=== PATIENT | male | born 1985 | race Caucasian/White ===

== ENCOUNTER 2018-06-15 22:04 | Emergency (ER) | payer OTHER ==
[~2018-06-15] VITALS: Ht 147.3 cm; Wt 68.2 kg
[2018-06-15 22:12] VITALS: Ht 147.3 cm; Wt 68.2 kg
[2018-06-15] MEDS ORDERED: CONCERTA 18 MG18 MG PO (22:15)
[2018-06-15] MEDS ORDERED: LEXAPRO20 MG PO (22:15)
[2018-06-16] MEDS ORDERED: ROBAXIN-750750 MG PO (01:00)
[2018-06-16 02:01] VITALS: BP 132/85
== END 2018-06-16 02:02 | disposition home or self-care (01) ==
LOC: D.ER 22:04
DX: S30.1XXA Contusion of abdominal wall, initial encounter (principal); V43.52XA Car driver injured in collision with other type car in traffic accident, initial encounter; Y93.89 Activity, other specified; Y92.410 Unspecified street and highway as the place of occurrence of the external cause; S16.1XXA Strain of muscle, fascia and tendon at neck level, initial encounter; F17.200 Nicotine dependence, unspecified, uncomplicated

== ENCOUNTER 2018-06-22 17:08 | Emergency (ER) | payer OTHER ==
[~2018-06-22] VITALS: Ht 147.3 cm; Wt 65.8 kg
[~2018-06-22 17:08] MED LIST: CONCERTA 18 MG18 MG PO; LEXAPRO20 MG PO; ROBAXIN-750750 MG PO
[2018-06-22 17:15] VITALS: Ht 147.3 cm; Wt 65.8 kg
[2018-06-22] MEDS ORDERED: TYLENOL W/CODEI1 TAB PO (19:58)
[2018-06-22 21:02] VITALS: BP 138/85
== END 2018-06-22 20:37 | disposition home or self-care (01) ==
LOC: D.ER 17:08
DX: S63.501A Unspecified sprain of right wrist, initial encounter (principal); V89.2XXA Person injured in unspecified motor-vehicle accident, traffic, initial encounter; Y93.89 Activity, other specified; Y92.410 Unspecified street and highway as the place of occurrence of the external cause